=== PATIENT | female | born 1955 | race Caucasian/White ===

== ENCOUNTER → 2023-05-09 10:50 | Outpatient (REF) | payer MEDICARE, OTHER, SELFPAY | LOC: RAD 10:50 | PROVIDERS: ATTENDING PHYSICIAN Family Medicine | DX: I73.9 Peripheral vascular disease, unspecified (principal) | CPT/HCPCS: 93922; 93925 ==

== ENCOUNTER → 2023-07-23 12:08 | Outpatient (REF) | payer MEDICARE, OTHER, SELFPAY | LOC: WDC 12:08 | PROVIDERS: ATTENDING PHYSICIAN Family Medicine | DX: Z12.31 Encounter for screening mammogram for malignant neoplasm of breast (principal) | CPT/HCPCS: 77063; 77067 ==

== ENCOUNTER 2023-08-18 14:49 | Emergency (ER) | payer MEDICARE, OTHER, SELFPAY ==
[2023-08-18 14:52] VITALS: BP 131/59
[2023-08-18 15:15] LABS: % Basophils 0.5 % (0-2); % Immature Granulocytes 0.5 % (0-0.5); % Lymphocytes 22.3 % (20.5-51.1); % Monocytes 5.7 % (1.7-9.3); Absolute Eosinophils 0.3 10^3/uL (0-0.7); Absolute Lymphocytes 1.5 10^3/uL (1.2-3.4); Absolute Monocytes 0.4 10^3/uL (0.1-0.6); Absolute Neutrophils 4.4 10^3/uL (1.4-6.5); Hemoglobin 14.2 g/dL (12.0-16.0); Mean Corp Hgb Conc. 35.5 g/dL (33.0-37.0); Mean Corpuscular Hgb 29.5 pg (27.0-31.0); Mean Platelet Volume 10.7 fL (7.4-10.4); Nucleated Red Blood Cells % 0 %; Platelet Count 208 10^3/uL (130-400); Red Blood Cell Count 4.82 10^6/uL (4.20-5.40); Red Cell Dist. Width 14.6 % (11.5-14.5); White Blood Cell Count 6.5 10^3/uL (4.8-10.8)
[2023-08-18 15:33] LABS: ALT (SGPT) 25 U/L (0-35); AST (SGOT) 25 U/L (14-36); Alkaline Phosphatase 74 U/L (38-126); Blood Urea Nitrogen 28 mg/dl (7-17); Calcium 9.3 mg/dl (8.4-10.2); Carbon Dioxide 21 mmol/L (22-30); Chloride 106 mmol/L (98-107); Glucose 157 mg/dl (70-99); Potassium 4.8 mmol/L (3.5-5.1); Sodium 136 mmol/L (135-145); Total Bilirubin 0.5 mg/dl (0.2-1.3); Total Protein 6.8 g/dl (6.3-8.2); eGFR > 60.00
[2023-08-18 15:44] LABS: Troponin I < 0.012 ng/ml
[2023-08-18 16:47] VITALS: BP 123/74
--- NOTE | 2023-08-18 18:01 | ED.GENMED ---
History of Present Illness
General
Chief Complaint: Back Pain
Source: patient
Exam Limitations: none
Time Seen by Provider: 08/18/23 17:18
Nursing documentation reviewed up to this point in time: agreed with
Travel History
Have you had any contact with someone who has COVID-19?: No
Do you have any symptoms of coronavirus? Fever > 100 degrees, chills, cough, shortness of breath, sore throat, loss of taste or smell, muscle aches, or headache?: No
History of Present Illness
History of Present Illness:
The patient is a pleasant 68-year-old female who comes in with complaints of acute on chronic back pain. Patient reports that she frequently has low back pain that radiates down both legs, however, she reports that usually the pain radiates down
the front of the legs and this morning the pain was radiating down the back of her legs, right worse than left. Patient reports that she also feels slightly dizzy and off with her balance. She admits that she frequently gets vertigo, and states
that this feels similar. She denies visual changes, weakness and numbness. Patient reports that she was recently treated for Lyme's disease so is not sure if the Lyme disease has caused her back pain to intensify. She also reports that she just
finished a course of steroids for poison jonathan. Patient reports that her back pain goes across her lower back and shoots down the back of her right leg to the level of her knee. She denies bowel and bladder incontinence. The patient denies any
burning when she urinates or increased frequency of urination.
Past History
Past History
ED Past Medical History: HTN, IDDM, Hypothyroidism and Other (Irritable bowel syndrome, arthritis)
ED Past Surgical History: Cholecystectomy (1990), Orthopedic (Carpal tunnel release) and Tonsilectomy
Patient has exhibited threatening behavior?: No
Social History
Tobacco: Non-smoker
Alcohol: None
Drug: None
Personal:
Living: with family
Employment: Disabled
Family History
Family History: Diabetes and Hypertension
Review of Systems
Review of Systems
Allergies reviewed?: Yes
All Other Systems: ROS reviewed and negative except as documented in HPI and ROS
Constitutional: Reports no symptoms
EENT: Reports no symptoms
Respiratory: Reports no symptoms
Cardiac: Reports no symptoms
ABD/GI: Reports no symptoms
: Reports no symptoms
Musculoskeletal: Reports muscle stiffness and back pain
Skin: Reports no symptoms
Neurological: Reports dizzy; Denies headache, weakness or numbness
Endocrine: Reports no symptoms
Hematologic/Lymphatic: Reports no symptoms
Psychiatric: Reports no symptoms
Phy Exam
Physical Exam
Physical Exam:
Physical Exam
General: Patient appears anxious but is conversational and nontoxic
Neck: supple. no meningeal signs. normal psoterior pharynx
Heart: s1/s2 regular rate and rhythm, no murmur. equal radial pulses.
Lungs: no acute respiratory distress. clear bilaterally
Abdomen: normal bowel sounds. not tender. no CVAT. No midline spinal tenderness from C-spine down through L-spine.
Neuro: alert and orientedx3. no focal neurological deficits. Patient able to get up and walk with steady gait. 5 out of 5 strength in all extremities. Extraocular muscles intact. Normal jzukrt-to-zadd. No saddle
anesthesia
Skin: no rash
Psychiatric: well kept. interactive and cooperative
Extremities: no edema. no calf tenderness. negative homans. good distal pulses
Course
Orders/Labs/Results
Orders:
Orders
08/18/23 14:55
Electrocardiogram (*1) Urgent
Reason for Study: Vertigo / Dizzy
EKG- Treatment ONCE
08/18/23 15:10
CMP [Comprehensive Metabolic Panel] Urgent
Complete Blood Count/With Diff Urgent
Troponin I Urgent
08/18/23 18:13
0.9% Sodium Chloride 1000 ml [Nss] 1,000 ml IV BOLUS
08/18/23 18:15
CT Head W/o Iv Contrast Urgent
Comment:
Reason For Exam: dizziness
08/18/23 18:16
Ketorolac [Toradol] 15 mg IV NOW STA
diazePAM [Valium Injection] 2 mg IV NOW STA
08/18/23 20:12
Oxycodone/Acetaminophen [Percocet 5/325] 1 tablet PO NOW STA
Abnormal Lab Results
08/18/23
15:10
RDW 14.6 H %
(11.5-14.5)
MPV 10.7 H fL
(7.4-10.4)
Carbon Dioxide 21 L mmol/L
(22-30)
BUN 28 H mg/dl
(7-17)
Glucose 157 H mg/dl
(70-99)
08/18/23 15:10
08/18/23 15:10
Vital Signs
Initial and Last Documented VS:
Initial Vital Signs
Temp Pulse Resp BP Pulse Ox
97.9 F 72 16 131/59 98
08/18/23 14:52 08/18/23 14:52 08/18/23 14:52 08/18/23 14:52 08/18/23 14:52
Last Documented Vital Signs
Temp Pulse Resp BP Pulse Ox
97.9 F 75 18 123/71 98
08/18/23 14:52 08/18/23 20:32 08/18/23 20:32 08/18/23 20:32 08/18/23 20:32
MDM/Problems Addressed
Differential Diagnosis Includes:
Acute on chronic back pain with sciatica, dehydration, benign positional vertigo, acute CVA
MDM/Problems Addressed:
Patient presents with acute on chronic back pain as well as acute dizziness
Chronic conditions affecting care:
Given patient has a history of diabetes and hypertension, she is at increased risk of stroke
Chronic conditions affecting care: DM and HTN
Acute Exacerbation and/or Progression of Chronic Illness: HTN
*Radiology
Radiology exam reviewed: radiology read reviewed
*Pulse Oximetry
Patient hypoxic: no
*EKG
Interpreted by ED Provider?: Yes
Interpretation: normal
Comparison EKG: no changes
Rate: normal
Rhythm: sinus
[place]: normal axis
Interval: normal interval
QRS Pattern: normal QRS
Ischemia: no ischemia
*Clinical Safety Specialist Interpretation
Rate: normal
Interpretation: normal
Rhythm: sinus
*Critical Care Note
Total Time (30-74mins, 75-104mins- exclusive of procedures): Not Applicable
Data Reviewed
Review of Other/Old Records Reveals: Radiology Studies (Reviewed MRI cervical spine from March 2023 which showed multiple levels of cervical spine stenosis)
Source: patient
Patient Management
Social determinants of health affecting care: Living situation and Strong social support
Update Note
Update Note:
8:00 PM patient is walking around steadily with a normal neurological exam. It is doubtful she is an acute stroke given that her gait is steady and her neurological exam is excellent. Patient's primary complaint is her lower back pain rating down
her right leg. Patient reports that her pain is much better with the Toradol and Valium but she still having moderate pain. Patient will be given 1 Percocet pill now. Patient encouraged to continue taking Advil every 6-8 hours with food for pain.
If pain is severe, I called in a prescription for Percocet. Patient encouraged to follow-up with her primary care doctor as soon as possible to reassess her back pain. If needed, explained that she might need an MRI of the lumbar spine or
physical therapy. Patient told to return to the ED immediately with any worsening dizziness, any weakness, numbness or any visual changes.
ED Attending Note
-
Portions of this chart may have been created with voice recognition software.� Occasional wrong word or��sound alike� substitutions may have occurred due to the inherent limitations of voice recognition software.
Discharge Plan
Departure
Patient Disposition: Home (Routine Discharge)
Date of Disposition: 08/18/23
Time of Disposition: 20:17
Patient with high blood pressure during this ER visit?: Yes
Condition: Good
Covid-19: Not Applicable
Discharge Problem:
Low back pain radiating to right lower extremity, Dizziness
Instructions: Low Back Pain (DC), Sciatica (DC), Dizziness, Adult ED
Prescriptions:
New
oxycodone-acetaminophen [Percocet] 5-325 mg tablet
1 tab PO Q6HPRN PRN (Reason: pain) Qty: 5 0RF
No Action
levothyroxine [Synthroid] 75 MCG tablet
75 mcg PO DAILY
citalopram 20 MG tablet
40 mg PO QPM
glipizide [Glucotrol XL] 10 MG tablet extended release 24hr
10 mg PO BID
meclizine 25 MG tablet
25 mg PO PRN PRN (Reason: dizziness)
ondansetron 4 MG tablet,disintegrating
4 mg PO TIDPRN PRN (Reason: nausea/vomiting) Qty: 10 0RF
empagliflozin [Jardiance] 25 MG tablet
25 mg PO DAILY
olmesartan-hydrochlorothiazide 1 EACH tablet
1 ea PO DAILY
cholecalciferol (vitamin D3) 2,000 UNITS tablet
5,000 units PO DAILY
metronidazole 500 MG tablet
500 mg PO TID Qty: 30 0RF
levofloxacin 500 MG tablet
500 mg PO DAILY Qty: 10 0RF
albuterol sulfate [Proventil HFA] 90 MCG/PUFF HFA aerosol inhaler
2 puff inhalation Q4HPRN PRN (Reason: shortness of breath, cough) Qty: 1 0RF
Rx Instructions:
please dispense with spacer and instruct in it's use
promethazine-DM 120 ML syrup
10 ml PO QIDPRN PRN (Reason: cough) Qty: 240 0RF
Referrals:
Katya Jain, [Family Provider] -
Activity Restrictions/Additional Instructions:
Return for any worsening dizziness or any visual changes. Please follow-up with your doctor within 1 week. Please take 400 mg of Advil with food every 6-8 hours for your back pain. If the back pain is severe, you can take 1 Percocet tablet every
6 hours (along with the Advil)
Interventions
Interventions:
*Risk Screen - Suicide Last Done: 08/18/23 16:46
*General Assessment Last Done: 08/18/23 16:46
*Neglect/Abuse Screening Last Done: 08/18/23 16:46
ED- Fall Risk Assessment Last Done: 08/18/23 16:46
*ED COVID-19 Vaccine History Last Done: 08/18/23 14:52
*Nursing Disposition Last Done: 08/18/23 20:35
ED-Musculoskeletal Assessment Last Done: 08/18/23 16:46
Discharge Date and Time
Discharge Date/Time: 08/18/23 20:39
Print Language: UKRAINIAN
[2023-08-18] MEDS: VALIUM INJECTION 2 MG IV (18:21)
[2023-08-18] MEDS: TORADOL 15 MG IV (18:21)
[2023-08-18] MEDS: NSS 1000 IV (18:22)
[2023-08-18 18:54] VITALS: BP 124/75
[2023-08-18] MEDS: PERCOCET 5/325 1 TABLET PO (20:27)
[2023-08-18 20:32] VITALS: BP 123/71
== END 2023-08-18 20:39 | disposition home or self-care (01) ==
LOC: EMR 14:49
PROVIDERS: Emergency Medicine; EMERGENCY PHYSICIAN Emergency Medicine; FAMILY PHYSICIAN Family Medicine
DX: M54.50 Low back pain, unspecified (principal); R42 Dizziness and giddiness; M79.604 Pain in right leg; I10 Essential (primary) hypertension; E11.9 Type 2 diabetes mellitus without complications; E03.9 Hypothyroidism, unspecified; K58.9 Irritable bowel syndrome, unspecified; M19.90 Unspecified osteoarthritis, unspecified site; M48.02 Spinal stenosis, cervical region; G89.29 Other chronic pain; Z79.4 Long term (current) use of insulin; Z90.49 Acquired absence of other specified parts of digestive tract
CPT/HCPCS: 99284; 96374; 96375; 96361; 70450; 80053; 84484; 85025; 93005

== ENCOUNTER → 2023-09-18 07:11 | Outpatient (REF) | payer MEDICARE, OTHER, SELFPAY ==
[2023-09-18 09:05] LABS: Blood Urea Nitrogen 24 mg/dl (7-17); Calcium 9.8 mg/dl (8.4-10.2); Carbon Dioxide 25 mmol/L (22-30); Chloride 103 mmol/L (98-107); Glucose 150 mg/dl (70-99); Sodium 137 mmol/L (135-145); eGFR > 60.00
== END ==
LOC: REG 07:11
PROVIDERS: ATTENDING PHYSICIAN Internal Medicine Gastroenterology; FAMILY PHYSICIAN Family Medicine
DX: K86.2 Cyst of pancreas (principal)
CPT/HCPCS: 36415; 80048

== ENCOUNTER → 2023-09-25 20:06 | Outpatient (REF) | payer MEDICARE, OTHER, SELFPAY | LOC: MRI 20:06 | PROVIDERS: ATTENDING PHYSICIAN Internal Medicine Gastroenterology; FAMILY PHYSICIAN Family Medicine | DX: K86.2 Cyst of pancreas (principal) | CPT/HCPCS: 74183; A9575 ==

== ENCOUNTER → 2023-10-02 13:48 | Outpatient (REF) | payer MEDICARE, OTHER, SELFPAY | LOC: HWRAD 13:48 | PROVIDERS: ATTENDING PHYSICIAN Obstetrics & Gynecology; FAMILY PHYSICIAN Family Medicine | DX: D21.9 Benign neoplasm of connective and other soft tissue, unspecified (principal) | CPT/HCPCS: 76830; 76856 ==

== ENCOUNTER → 2023-10-18 10:15 | Outpatient (REF) | payer MEDICARE, OTHER, SELFPAY | LOC: RAD 10:15 | PROVIDERS: ATTENDING PHYSICIAN Family Medicine; REFERRING PHYSICIAN Specialist | DX: M25.551 Pain in right hip (principal); M25.552 Pain in left hip | CPT/HCPCS: 73523 ==

== ENCOUNTER → 2023-11-13 15:41 | Outpatient (REF) | payer MEDICARE, OTHER, SELFPAY | LOC: PAVMRI 15:41 | PROVIDERS: ATTENDING PHYSICIAN Family Medicine | DX: M54.40 Lumbago with sciatica, unspecified side (principal) | CPT/HCPCS: 72148 ==

== ENCOUNTER → 2023-11-30 15:35 | Outpatient (REF) | payer MEDICARE, OTHER, SELFPAY | LOC: HWRAD 15:35 | PROVIDERS: ATTENDING PHYSICIAN Physical Medicine & Rehabilitation; FAMILY PHYSICIAN Family Medicine; REFERRING PHYSICIAN Specialist | DX: M50.30 Other cervical disc degeneration, unspecified cervical region (principal); M51.36 Other intervertebral disc degeneration, lumbar region | CPT/HCPCS: 72125; 72131 ==

== ENCOUNTER → 2023-12-03 13:35 | Outpatient (REF) | payer MEDICARE, OTHER, SELFPAY | LOC: RAD 13:35 | PROVIDERS: ATTENDING PHYSICIAN Physical Medicine & Rehabilitation; FAMILY PHYSICIAN Family Medicine | DX: M53.3 Sacrococcygeal disorders, not elsewhere classified (principal); G89.29 Other chronic pain; M50.30 Other cervical disc degeneration, unspecified cervical region; M51.36 Other intervertebral disc degeneration, lumbar region | CPT/HCPCS: 72050; 72110; 72202 ==

== ENCOUNTER → 2024-01-30 12:46 | Outpatient (REF) | payer MEDICARE, OTHER, SELFPAY | LOC: RAD 12:46 | PROVIDERS: ATTENDING PHYSICIAN Family Medicine | DX: R05.1 Acute cough (principal) | CPT/HCPCS: 71046 ==

== ENCOUNTER → 2024-05-19 07:52 | Outpatient (REF) | payer MEDICARE, OTHER, SELFPAY | LOC: HWRAD 07:52 | PROVIDERS: ATTENDING PHYSICIAN Family Medicine | DX: R10.10 Upper abdominal pain, unspecified (principal) | CPT/HCPCS: 76700 ==

== ENCOUNTER → 2024-07-24 12:07 | Outpatient (REF) | payer MEDICARE, OTHER, SELFPAY | LOC: WDC 12:07 | PROVIDERS: ATTENDING PHYSICIAN Family Medicine | DX: Z12.31 Encounter for screening mammogram for malignant neoplasm of breast (principal) | CPT/HCPCS: 77063; 77067 ==

== ENCOUNTER 2024-09-29 02:11 | Emergency (ER) | payer MEDICARE, OTHER, SELFPAY ==
[2024-09-29 02:16] VITALS: BP 168/104
[2024-09-29 02:29] VITALS: BMI 37.9
[2024-09-29 02:32] VITALS: BP 137/62
--- NOTE | 2024-09-29 02:41 | ED.GENMED ---
History of Present Illness
General
Chief Complaint: Fever
Source: patient
Exam Limitations: none
Time Seen by Provider: 09/29/24 02:31
Nursing documentation reviewed up to this point in time: agreed with
History of Present Illness
History of Present Illness:
This is a 69-year-old woman with history of hypertension, xpy-brkekeu-jnvljlcfc diabetes, hypothyroidism, depression as well as history of frequent UTIs. She follows with urology, Dr. Mccormick.
Tonight she developed chills, generalized aches as well as left upper quadrant to left flank pain. She took ibuprofen 400 mg around 10:30 PM and went to bed. She awoke with increased chills, aches, headache and increased pain left flank, left
upper quadrant.
No history of similar episodes in the past. She reports no recent UTIs and no prior history of pyelonephritis, no prior history of kidney stones. She denies cough, no shortness of breath, no nausea nor vomiting, no diarrhea. She denies dysuria
nor urgency nor hematuria. She has not had a rash.
No close contacts with similar symptoms.
No recent travel.
Past History
Past History
ED Past Medical History: HTN, NIDDM, Hypothyroidism, Psychiatric and Other (Irritable bowel syndrome, arthritis, UTIs, obesity, liver fibrosis)
ED Past Surgical History: Cholecystectomy (1990), Orthopedic (Carpal tunnel release) and Tonsilectomy
Patient has exhibited threatening behavior?: No
Social History
Tobacco: Non-smoker
Alcohol: None
Drug: None
Personal:
Living: with family
Employment: Retired
Family History
Family History: Diabetes and Hypertension
Phy Exam
Physical Exam
Physical Exam:
GENERAL: 69-year-old woman appears her stated age, awake and alert, pleasant, easily communicative and in no acute distress. Oral temperature 102.4 �F. Mildly hypertensive 168/104
EYE: pupils equal and reactive. anicteric
NECK: Supple, nontender, no meningismus, no significant adenopathy.
ENT: posterior pharynx is clear, oral mucosa is moist. TM clear b/l, nares patent.
CARDIAC: Regular rate and rhythm. no murmur.
LUNGS: Clear breath sounds bilaterally, no acute respiratory distress, no wheezes/rales/rhonchi
ABDOMEN: Rotund, soft, nondistended, mild to moderate tenderness left upper lateral quadrant, left lateral flank as well as left CVA tenderness, no palpable masses, no r/g, normoactive BS.
NEUROLOGICAL: Alert and oriented x3, no focal neuro deficits.
SKIN: Mildly hot to touch and dry, normal color, skin intact. No rash. There is a rowell to brown speckled patch like nevus left lateral flank which patient states is chronic from .
MUSCULOSKELETAL: No C/C/E. peripheral pulses are full and equal b/l. No palpable tenderness.
PSYCH: Normal and appropriate interaction.
Sepsis
Sepsis Screening
Sepsis Assessment: Sepsis Ruled Out
Sepsis Screen
Sepsis Screen: Sepsis Ruled Out
Date: 09/29/24
Time: 05:48
Course
Orders/Labs/Results
Orders:
Orders
09/29/24 02:25
Electrocardiogram (*1) Urgent
Reason for Study: Other
Other Reason for Exam: Possible Sepsis
Cardiac Monitoring- Treatment ONCE
IV Insert/Care/Rem.- Treatment PRN
O2 Therapy [RESP] Urgent
Titrate/Wean O2 to maintain O2 sat greater than (%): 93
Special Instructions: TO MAINTAIN CONTINUOUS O2 SATS > OR = 93%
Pulse Ox/cont/shift [RESP] Urgent
Quantity: 1
Special Instructions: CONTINUOUS
09/29/24 02:26
EKG- Treatment ONCE
09/29/24 02:36
Urinalysis Reflex To Culture Urgent
Date Specimen was Collected: 09/29/24
Time Specimen was Collected: 02:26
09/29/24 02:39
Lactic Acid Q4H
Comment: ON ICE, CANCEL 2ND ORDER IF FIRST LACTIC ACID LEVEL <2
09/29/24 02:40
Complete Blood Count/With Diff Urgent
Comprehensive Metabolic Panel Urgent
Blood Culture Q20M
LAUREN Source: Blood/Venous
Specimen Description:
Comment: Urgent from separate sites. If patient screens positive for possible sepsis
Blood Culture Q20M
LAUREN Source: Blood/Venous
Specimen Description:
Comment: Urgent from separate sites. If patient screens positive for possible sepsis
0.9% Sodium Chloride 1000 ml [Nss] 1,600 ml IV NOW STA
Acetaminophen [Tylenol] 1,000 mg PO NOW STA
09/29/24 02:41
CT Abd/pelvis W Iv Cont Urgent
Comment:
Reason For Exam: LUQ, L flank pain, fever
09/29/24 04:20
CR Chest - 2 Views Urgent
Comment:
Reason For Exam: Acute fever
09/29/24 05:12
Ketorolac [Toradol] 30 mg IV NOW STA
09/29/24 06:30
Lactic Acid Q4H
Comment: ON ICE, CANCEL 2ND ORDER IF FIRST LACTIC ACID LEVEL <2
Abnormal Lab Results
09/29/24 09/29/24
02:36 02:40
MPV 10.8 H fL
(7.4-10.4)
Absolute Lymphs (auto) 0.3 L 10^3/uL
(1.2-3.4)
Neutrophils % 85.8 H %
(42.2-75.2)
Lymphocytes % 5.7 L %
(20.5-51.1)
BUN 24 H mg/dl
(7-17)
Glucose 213 H mg/dl
(70-99)
Urine Glucose 4+ A
(Negative)
09/29/24 02:40
09/29/24 02:40
Vital Signs
Initial and Last Documented VS:
Initial Vital Signs
Temp Pulse Resp BP Pulse Ox
102.4 F H 109 28 168/104 94
09/29/24 02:16 09/29/24 02:16 09/29/24 02:16 09/29/24 02:16 09/29/24 02:16
Last Documented Vital Signs
Temp Pulse Resp BP Pulse Ox
99.3 F 92 17 119/49 94
09/29/24 03:54 09/29/24 04:15 09/29/24 04:00 09/29/24 04:00 09/29/24 04:15
MDM/Problems Addressed
Differential Diagnosis Includes:
Acute febrile illness, concern for UTI/pyelonephritis, diverticulitis, pneumonia, viral syndrome.
She is noted to be significantly febrile but otherwise hemodynamically stable. Concern for SIRS/sepsis.
No history of immunocompromise but does have history of diabetes/not insulin-dependent.
Will give a dose of Tylenol for fever, initiate IV fluid/normal saline bolus.
Will check labs, lactic acid, urinalysis. Blood and urine cultures.
Will plan for CT abdomen and pelvis with IV contrast.
Chronic conditions affecting care: DM, Previous abdomnial surgery and Other (History of UTIs)
*Radiology
Radiology exam reviewed: preliminary read by ED provider (Chest x-ray is unremarkable. Clear lung rico.) and radiology read reviewed (CT abdomen and pelvis is unremarkable. No acute findings. No evidence of diverticulitis nor colitis. No bowel
obstruction. No free air. No obstructive uropathy.)
*Pulse Oximetry
SaO2: 98
Oxygen Mode of Delivery: Room air
Patient hypoxic: no
*EKG
Interpreted by ED Provider?: Yes
Interpretation: normal
Comparison EKG: no comparison EKG present
Rate: normal
Rhythm: sinus
[place]: normal axis
Interval: normal interval
QRS Pattern: normal QRS
Ischemia: no ischemia
*Machine I Cutter Interpretation
Rate: normal
Interpretation: normal
Rhythm: sinus
*Critical Care Note
Total Time (30-74mins, 75-104mins- exclusive of procedures): Not Applicable
Update Note
Update Note:
05:15
Patient resting comfortably. Fever dissipating. She remains hemodynamically stable.
Left lateral flank pain has markedly improved. She continues with mild headache. Continues to have no neck pain, neck remains supple without meningismus.
Labs are unremarkable. Normal white blood cell count. Unremarkable chemistries save for elevated random glucose of 213. Normal lactic acid at 2.0.
Urinalysis is unremarkable save for plus for glucose. No evidence of UTI.
Chest x-ray is unremarkable. Clear lung rico. CT abdomen pelvis is unremarkable as well.
At this point unclear as to the cause for fever I suspect viral syndrome.
IV fluids infusing. Will give an IV dose of Toradol for headache, myalgias.
Will plan for discharge to home with recommendations to continue supportive measures, staying well-hydrated on a daily basis, ibuprofen versus Tylenol for fever, aches.
Prompt follow-up with PCP for recheck.
ED Attending Note
-
Portions of this chart may have been created with voice recognition software.� Occasional wrong word or��sound alike� substitutions may have occurred due to the inherent limitations of voice recognition software.
Discharge Plan
Departure
Patient Disposition: Home (Routine Discharge)
Date of Disposition: 09/29/24
Time of Disposition: 05:48
Patient with high blood pressure during this ER visit?: No
Condition: Good
Discharge Problem:
Acute febrile illness, Acute viral syndrome
Instructions: Fever, Adult (DC), Viral Syndrome (DC)
Prescriptions:
No Action
levothyroxine [Synthroid] 75 MCG tablet
75 mcg PO DAILY
citalopram 20 MG tablet
40 mg PO QPM
glipizide [Glucotrol XL] 10 MG tablet extended release 24hr
10 mg PO BID
meclizine 25 MG tablet
25 mg PO PRN PRN (Reason: dizziness)
ondansetron 4 MG tablet,disintegrating
4 mg PO TIDPRN PRN (Reason: nausea/vomiting) Qty: 10 0RF
empagliflozin [Jardiance] 25 MG tablet
25 mg PO DAILY
olmesartan-hydrochlorothiazide 1 EACH tablet
1 ea PO DAILY
cholecalciferol (vitamin D3) 2,000 UNITS tablet
5,000 units PO DAILY
metronidazole 500 MG tablet
500 mg PO TID Qty: 30 0RF
levofloxacin 500 MG tablet
500 mg PO DAILY Qty: 10 0RF
albuterol sulfate [Proventil HFA] 90 MCG/PUFF HFA aerosol inhaler
2 puff inhalation Q4HPRN PRN (Reason: shortness of breath, cough) Qty: 1 0RF
Rx Instructions:
please dispense with spacer and instruct in it's use
promethazine-DM 120 ML syrup
10 ml PO QIDPRN PRN (Reason: cough) Qty: 240 0RF
oxycodone-acetaminophen [Percocet] 5-325 mg tablet
1 tab PO Q6HPRN PRN (Reason: pain) Qty: 5 0RF
Referrals:
UNKNOWN - PT DOES,NOT KNOW [Family Provider] - Call in 1-3 days for appt
Interventions
Interventions:
*Risk Screen - Suicide Last Done: 09/29/24 02:16
*General Assessment Last Done: 09/29/24 02:16
*Neglect/Abuse Screening Last Done: 09/29/24 02:16
*ED- Fall Risk Assessment Last Done: 09/29/24 02:16
*ED COVID-19 Vaccine History Last Done: 09/29/24 02:16
YF-Kpufkw-Gfznazxdjx Assessment Last Done: 09/29/24 03:09
ED- Neurological Assessment Last Done: 09/29/24 03:09
ED-Skin Assessment Last Done: 09/29/24 03:09
Discharge Date and Time
Print Language: POLISH
[2024-09-29] MEDS: NSS 1600 ML IV (02:43)
[2024-09-29] MEDS: TYLENOL 1000 MG PO (02:47)
[2024-09-29 02:48] LABS: Urine Character Clear (Clear)
[2024-09-29 02:50] LABS: Hematocrit 40.2 % (37.0-47.0); Hemoglobin 13.6 g/dL (12.0-16.0); Mean Corp Hgb Conc. 33.8 g/dL (33.0-37.0); Mean Corpuscular Volume 85.4 fL (81.0-99.0); Nucleated Red Blood Cells % 0 %; Platelet Count 201 10^3/uL (130-400); Red Cell Dist. Width 14.2 % (11.5-14.5)
[2024-09-29 03:12] LABS: ALT (SGPT) 33 U/L (0-35); AST (SGOT) 28 U/L (14-36); Albumin 4.4 g/dl (3.5-5.0); Alkaline Phosphatase 88 U/L (38-126); Blood Urea Nitrogen 24 mg/dl (7-17); Calcium 9.4 mg/dl (8.4-10.2); Carbon Dioxide 25 mmol/L (22-30); Chloride 102 mmol/L (98-107); Estimated Creatinine Clearance 78 ml/min; Glucose 213 mg/dl (70-99); Potassium 4.5 mmol/L (3.5-5.1); Sodium 137 mmol/L (135-145); Total Protein 7.1 g/dl (6.3-8.2); eGFR > 60.00
[2024-09-29 03:52] VITALS: BP 118/47
[2024-09-29 04:00] VITALS: BP 119/49
[2024-09-29] MEDS: TORADOL 30 MG IV (05:28)
== END 2024-09-29 06:03 | disposition home or self-care (01) ==
LOC: EMR 02:11
PROVIDERS: EMERGENCY PHYSICIAN Emergency Medicine
DX: R50.9 Fever, unspecified (principal); B34.9 Viral infection, unspecified; I10 Essential (primary) hypertension; E11.9 Type 2 diabetes mellitus without complications; E03.9 Hypothyroidism, unspecified; K58.9 Irritable bowel syndrome, unspecified; M19.90 Unspecified osteoarthritis, unspecified site; E66.9 Obesity, unspecified; F32.A Depression, unspecified; Z82.49 Family history of ischemic heart disease and other diseases of the circulatory system; Z83.3 Family history of diabetes mellitus; Z87.440 Personal history of urinary (tract) infections; Z90.49 Acquired absence of other specified parts of digestive tract
CPT/HCPCS: 99284; 96374; 96361; 71046; 74177; 80053; 81003; 83605; 85025; 87040; 93005; Q9967

== ENCOUNTER → 2024-11-17 13:33 | Outpatient (REF) | payer MEDICARE, OTHER, SELFPAY | LOC: REG 13:33 | PROVIDERS: ATTENDING PHYSICIAN Family Medicine | DX: M79.641 Pain in right hand (principal) | CPT/HCPCS: 73130 ==

== ENCOUNTER 2024-11-30 21:46 | Emergency (ER) | payer MEDICARE, OTHER, SELFPAY ==
[2024-11-30 21:48] VITALS: BP 111/79
[2024-11-30] MEDS: BENADRYL 25 MG PO (22:52)
[2024-11-30] MEDS: DECADRON 10 MG PO (22:52)
--- NOTE | 2024-11-30 23:13 | ED.SKININJ ---
HPI-Injury
General
Chief Complaint: Skin Problem
Source: patient
Exam Limitations: none
Time Seen by Provider: 11/30/24 22:17
Nursing documentation reviewed up to this point in time: agreed with
History of Present Illness-Injury
Initial Injury comments:
Note:
CHIEF COMPLAINT(S)
Itchy rash all over the body.
HISTORY OF PRESENT ILLNESS
The patient is a 69-year-old female presenting with a diffuse itchy rash on her body, which began yesterday and has progressively worsened. The rash appears like small bites and predominantly affects the lower extremities, particularly around the
ankles, before moving upward. The patient denies any similar previous episodes and reports no other household members affected by the rash. Despite having a cat at home, the pet does not show any signs of a similar condition. The patient has
attempted vinegar and Benadryl as home treatments with no relief. She denies any recent changes in environment or exposures that typically cause allergic reactions.
PAST MEDICAL AND SURGICAL HISTORY
The patient has a history of diabetes.
CHRONIC MEDICAL CONDITIONS SIGNIFICANTLY AFFECTING CARE
Diabetes.
SOCIAL HISTORY
The patient lives alone.
PHYSICAL EXAM
- General: Alert, no acute distress.
- Skin: Warm, dry. Evidence of a diffuse rash resembling insect bites notably around the ankles with extension upwards.
- Head: Normocephalic, atraumatic.
- Neck: Supple, trachea midline.
- Eyes, ears, nose, mouth, and throat: Oral mucosa moist.
- Cardiovascular: Normal peripheral perfusion, No edema.
- Respiratory: Respirations are non-labored.
- Gastrointestinal: Abdomen nondistended.
- Back: Normal range of motion, Normal alignment.
- Musculoskeletal: Normal range of motion, normal strength.
- Neurological: Alert and oriented to person, place, time, and situation, No focal neurological deficit observed.
- Psychiatric: Cooperative, appropriate mood & affect.
PLAN
1. Administer a dose of steroids to help alleviate the itching.
2. Recommend the use of topical calamine lotion to soothe the irritated skin.
3. Monitor the patients response to treatment in the immediate setting.
DIFFERENTIAL DIAGNOSIS
The Differential Diagnosis includes, in no particular order and is not limited to:
1. Insect bites (e.g., bedbugs, fleas)
2. Contact dermatitis
3. Eczema
4. Scabies
5. Psoriasis
6. Drug eruption
7. Allergic dermatitis
8. Urticaria
9. Folliculitis
10. Viral exanthem
Disposition:
SUMMARY OF ENCOUNTER
The patient is a 69-year-old female who presented with a pruritic rash concentrated around the ankles and appearing as sporadic bite-like lesions extending to the upper torso and extremities. The patient reports the onset of symptoms following her
cats return from the [facility], implying a possible exposure related to the pets environment. She denies associated symptoms such as fever, chills, or nausea.
DISPOSITION
Discharge in improved condition.
ASSESSMENT
The patients rash is assessed as likely due to insect bites, possibly related to the cat returning from the [facility].
PLAN
1. Recommend continued use of 1% hydrocortisone cream at home.
2. Advise taking diphenhydramine (Benadryl) as needed for itching relief.
3. Suggest topical calamine lotion to soothe the irritated skin.
PATIENT EDUCATION AND COUNSELING
The patient was counseled on applying 1% hydrocortisone cream and using calamine lotion to alleviate itching. The connection between the rash and possible insect bites due to the cats recent [facility] visit was discussed.
FOLLOW-UP INSTRUCTIONS
The patient was advised to monitor the rash and seek further medical attention if symptoms worsen or do not resolve.
MEDICATION RECONCILIATION
- 1% hydrocortisone cream for topical use.
- Continue diphenhydramine (Benadryl) as needed for itching.
- Topical calamine lotion recommended.
MEDICAL DECISION MAKING
-Complexity of Data Reviewed: Chronic conditions affecting care include diabetes. Differential diagnosis includes insect bites, contact dermatitis, eczema, scabies, psoriasis, drug eruption, allergic dermatitis, urticaria, folliculitis, and viral
exanthem.
-Risk:
Consideration of admission/observation was not necessary as the patients condition improved with outpatient treatment, her symptoms were controlled, and she was agreeable to discharge with a management plan. The patient is reliable for follow-up.
DIAGNOSIS
Suspected insect bites (ICD-10-CM Code: T07)
Past History
Past History
ED Past Medical History: HTN, NIDDM, Hypothyroidism, Psychiatric and Other (Irritable bowel syndrome, arthritis, UTIs, obesity, liver fibrosis)
ED Past Surgical History: Cholecystectomy (1990), Orthopedic (Carpal tunnel release) and Tonsilectomy
Patient has exhibited threatening behavior?: No
Social History
Tobacco: Non-smoker
Alcohol: None
Drug: None
Personal:
Living: with family
Employment: Retired
Family History
Family History: Diabetes and Hypertension
Phy Exam
Physical Exam
Physical Exam:
.
Course
Orders/Labs/Results
Orders:
Orders
11/30/24 22:34
Dexamethasone Pf [Decadron] 10 mg PO NOW STA
Diphenhydramine [Benadryl] 25 mg PO NOW STA
Vital Signs
Initial and Last Documented VS:
Initial Vital Signs
Temp Pulse Resp BP Pulse Ox
97.8 F 71 16 111/79 98
11/30/24 21:48 11/30/24 21:48 11/30/24 21:48 11/30/24 21:48 11/30/24 21:48
Last Documented Vital Signs
Temp Pulse Resp BP Pulse Ox
97.8 F 64 16 104/77 98
11/30/24 21:48 12/01/24 00:05 12/01/24 00:05 12/01/24 00:05 12/01/24 00:05
*Pulse Oximetry
SaO2: 98
Oxygen Mode of Delivery: Room air
Patient hypoxic: no
*Critical Care Note
Total Time (30-74mins, 75-104mins- exclusive of procedures): Not Applicable
ED Attending Note
-
Portions of this chart may have been created with voice recognition software.� Occasional wrong word or��sound alike� substitutions may have occurred due to the inherent limitations of voice recognition software.
Discharge Plan
Departure
Patient Disposition: Home (Routine Discharge)
Date of Disposition: 11/30/24
Time of Disposition: 23:15
Patient with high blood pressure during this ER visit?: No
Discharge Problem:
Insect bite, Rash
Instructions: Skin Rash (DC), Wound Care (DC), Insect bites and stings - ED (DC)
Prescriptions:
No Action
levothyroxine [Synthroid] 75 MCG tablet
75 mcg PO DAILY
citalopram 20 MG tablet
40 mg PO QPM
glipizide [Glucotrol XL] 10 MG tablet extended release 24hr
10 mg PO BID
meclizine 25 MG tablet
25 mg PO PRN PRN (Reason: dizziness)
ondansetron 4 MG tablet,disintegrating
4 mg PO TIDPRN PRN (Reason: nausea/vomiting) Qty: 10 0RF
empagliflozin [Jardiance] 25 MG tablet
25 mg PO DAILY
olmesartan-hydrochlorothiazide 1 EACH tablet
1 ea PO DAILY
cholecalciferol (vitamin D3) 2,000 UNITS tablet
5,000 units PO DAILY
metronidazole 500 MG tablet
500 mg PO TID Qty: 30 0RF
levofloxacin 500 MG tablet
500 mg PO DAILY Qty: 10 0RF
albuterol sulfate [Proventil HFA] 90 MCG/PUFF HFA aerosol inhaler
2 puff inhalation Q4HPRN PRN (Reason: shortness of breath, cough) Qty: 1 0RF
Rx Instructions:
please dispense with spacer and instruct in it's use
promethazine-DM 120 ML syrup
10 ml PO QIDPRN PRN (Reason: cough) Qty: 240 0RF
oxycodone-acetaminophen [Percocet] 5-325 mg tablet
1 tab PO Q6HPRN PRN (Reason: pain) Qty: 5 0RF
Referrals:
Katya Jain DO [Primary Care Provider, Family Practice]
Activity Restrictions/Additional Instructions:
[id number] steroid cream as well as calamine lotion and Benadryl to treat the itch.
Thank You for choosing [facility].
It was a pleasure meeting you and taking part in your care. We hope for your continued healing and wellness.
Please read discharge instructions in their entirety. However, they are for general education and may not describe your exact diagnosis at discharge. Information on your ER visit and medical conditions were discussed with you along with appropriate
follow up information...
If indicated, please take your medications as instructed and indicated on discharge paperwork.
Please schedule a follow up appointment as directed. Call to schedule an appointment
Please return to the emergency department with ANY change in, persisting, or worsening of symptoms. If any of your symptoms do not improve, or persist, or become more severe within 6-12 hours, please return to the emergency department for further
care.
Please return to the emergency department if you develop a headache, neck pain/stiffness, fever greater than 100.4F, chest pain, shortness of breath, persistent nausea, vomiting, slurred speech, difficulty walking, numbness/tingling, weakness, signs
of infection or any other symptoms that are worrisome to you.
If you have any questions or concerns please do not hesitate to call the Hospital at .
Interventions
Interventions:
*Risk Screen - Suicide Last Done: 11/30/24 21:48
*General Assessment Last Done: 11/30/24 21:48
*Neglect/Abuse Screening Last Done: 11/30/24 21:48
*ED- Fall Risk Assessment Last Done: 11/30/24 21:48
*ED COVID-19 Vaccine History Last Done: 11/30/24 21:48
*Nursing Disposition Last Done: 12/01/24 00:05
ED-Skin Assessment Last Done: 11/30/24 23:00
Discharge Date and Time
Discharge Date/Time: 12/01/24 00:05
Print Language: PASHTO
[2024-12-01 00:05] VITALS: BP 104/77
--- NOTE | 2024-12-01 00:24 | EDRN ---
has them on ankles bilaterally. legs thighs and arms. Pt has a few on face L side. Pt states that they itch. Pt has a cat. Bites started at ankles first.
== END 2024-12-01 00:05 | disposition home or self-care (01) ==
LOC: EMR 21:46
PROVIDERS: EMERGENCY PHYSICIAN Student in an Organized Health Care Education/Training Program; PRIMARYCARE PHYSICIAN Family Medicine
DX: R21 Rash and other nonspecific skin eruption (principal); W57.XXXA Bitten or stung by nonvenomous insect and other nonvenomous arthropods, initial encounter; E11.9 Type 2 diabetes mellitus without complications; E03.9 Hypothyroidism, unspecified; E66.9 Obesity, unspecified; I10 Essential (primary) hypertension; K58.9 Irritable bowel syndrome, unspecified; K74.00 Hepatic fibrosis, unspecified; M19.90 Unspecified osteoarthritis, unspecified site; Z82.49 Family history of ischemic heart disease and other diseases of the circulatory system; Z83.3 Family history of diabetes mellitus; Z87.440 Personal history of urinary (tract) infections; Z90.49 Acquired absence of other specified parts of digestive tract
CPT/HCPCS: 99282